=== PATIENT | female | born 1990 | race Two or more races ===

== ENCOUNTER 2025-05-07 12:45 | Inpatient (IN) ==
[2025-05-07 13:13] VITALS: BMI 24.4
[2025-05-07 13:20] LABS: BLOOD/HEMOGLOBIN,URINE 5+ (NEGATIVE); LEUKOCYTE ESTERASE ,URINE 3+ (NEGATIVE); NITRITES,URINE NEGATIVE (NEGATIVE)
[2025-05-07 13:32] LABS: APPEARANCE,URINE SLIGHTLY HAZY (CLEAR)
[2025-05-07 13:35] LABS: AMNISURE ROM TEST NO MEMBRANES RUPTURE (NO RUPTURE)
[2025-05-07 13:37] LABS: SQUAMOUS EPITHELIAL CELL,UR MANY /HPF (NEGATIVE)
[2025-05-07] MEDS ORDERED: ZOFRAN INJ 4 MG VIAL IVP PRN (13:48)
[2025-05-07] MEDS ORDERED: REGLAN INJ 10 MG VIAL IVP PRN (13:48)
[2025-05-07] MEDS ORDERED: NUBAIN INJ 10 MG AMP IVP PRN (13:48)
[2025-05-07] MEDS ORDERED: PITOCIN ONE (14:17)
[2025-05-07] MEDS ORDERED: LR 1,000 ML IV 1,000 ML IV ONE (14:17)
[2025-05-07] MEDS: OXYTOCIN 20 UNIT/1,000 ML-NS 20 UNIT/1,000 ML PLAST..BAG IV PRN (14:21)
[2025-05-07] MEDS: LR 1,000 ML IV 1,000 ML IV SCH (14:21)
[2025-05-07 14:25] LABS: MEAN PLATELET VOLUME 9.6 fL (7.4-11.0); RED CELL DISTRIBUTION WIDTH 14.3 % (11.6-16.5)
[2025-05-07 14:31] LABS: COR NA(FOR HYPERGLY) 137 mmol/L (136-145); CREATININE 0.59 mg/dL (0.55-1.02); eGFR NON BLACK RACES > 60 (>60)
[2025-05-07] MEDS: BETADINE SOLN ONE (15:14)
[2025-05-07] MEDS: PITOCIN IVP ONE (19:15)
[2025-05-07] MEDS ORDERED: AMBIEN PO PRN (19:29)
[2025-05-07] MEDS: OXYTOCIN 20 UNIT/1,000 ML-NS 20 UNIT/1,000 ML PLAST..BAG IV SCH (20:15)
[2025-05-07] MEDS: MOTRIN TAB 800 MG PO PRN (22:32)
[2025-05-08] MEDS: PRENATAL PLUS PO SCH (08:42)
[2025-05-09 08:12] VITALS: BP 116/63; PULSE 68; RESP 18; TEMP 98.5; O2SAT 98
== END 2025-05-09 10:55 | disposition home or self-care (01) | DRG 807 ==
LOC: ER 12:45 → LD 13:48 → MED/SURG 20:17
PROVIDERS: ADMIT Obstetrics & Gynecology Obstetrics; ATTEND Obstetrics & Gynecology Obstetrics
DX: Z37.0 Single live birth; Z3A.40 40 weeks gestation of pregnancy; Z55.8 Other problems related to education and literacy; O80 Encounter for full-term uncomplicated delivery